=== PATIENT | female | born 1980 ===

== ENCOUNTER 2022-05-29 21:39 | Emergency (ER) | payer OTHER | END 2022-05-29 23:05 | disposition home or self-care (01) | LOC: LL.ED 21:39 | DX: N39.0 Urinary tract infection, site not specified (principal); M54.50 Low back pain, unspecified; E11.9 Type 2 diabetes mellitus without complications; Z90.710 Acquired absence of both cervix and uterus; Z88.0 Allergy status to penicillin; Z91.012 Allergy to eggs; Z79.899 Other long term (current) drug therapy; Z79.4 Long term (current) use of insulin | CPT/HCPCS: 81003; 81025; 87086; 99283; 99284 ==